=== PATIENT | female | born 1945 | race American Indian/Alaskan Native ===

== ENCOUNTER 2021-08-24 09:00 | Day surgery (SDC) | payer MEDICARE ==
[2021-08-24] MEDS ORDERED: LIDOCAINE (2%) 20 MG/1 ML VIAL 20 ML MDV INFILTRATI ONE (09:37)
[2021-08-24] MEDS ORDERED: LIDOCAINE (1%) 10 MG/1 ML VIAL 20 ML MDV ONE (09:44)
[2021-08-24 10:07] LABS: INR 0.88 (0.87-1.13)
[2021-08-24 10:08] LABS: Partial Thromboplastin Time 28.1 Sec. (24.2-36.6)
[2021-08-24] MEDS ORDERED: HYDROcodone/ACETAMINOPHEN 5-325 MG TAB PO NR (12:30)
--- NOTE | 2021-08-24 12:43 | Short Stay Summary ---
Short Stay Documentation Date of service: 08/24/21 - History Principal diagnosis: back pain with radiculopathy Past Surgical History: Other (lumbar fusion) - Allergies and Medications Current Medications: Allergies No Known Allergies Allergy (Unverified 08/24/21 09:23) Home Medications Medication Instructions Recorded Confirmed Last Taken Type Acetaminophen [Tylenol] 500 mg PO DAILY 08/24/21 08/24/21 08/23/21 History 1 tab Gabapentin [Neurontin] 800 mg PO TID 08/24/21 08/24/21 08/23/21 History 800 mg OXYCODONE hcl [Oxycodone] 15 mg PO TID PRN 08/24/21 08/24/21 08/23/21 History 15 mg hydroCHLOROthiazide [HCTZ] 12.5 mg PO DAILY 08/24/21 08/24/21 08/23/21 History 12.5mg predniSONE [Deltasone] 5 mg PO DAILY 08/24/21 08/24/21 08/23/21 History 5 mg tiZANidine [Zanaflex 4mg TAB] 4 mg PO BID 08/24/21 08/24/21 08/23/21 History 4 mg Active Medications Hydrocodone Bitart/Acetaminophen (Hydrocodone/Acetaminophen 5-325 Mg Tab) 1 each PO ONCE NR Stop: 08/24/21 13:00 - Physical exam General appearance: no acute distress Extremities: no ischemia, No edema - Brief post op/procedure progress note Date of procedure: 08/24/21 Pre-op diagnosis: back pain Post-op diagnosis: same Procedure: thoracic and lumbar myelogram Anesthesia: local Findings: diffusion spondylosis. previous lumbar fusion Surgeon: SOUMYA WAKTINS Estimated blood loss: none Pathology: none Condition: stable - Hospital course Hospital course: pt complained of mild back pain post procedure, similar to pain at beginning of procedure - Disposition Condition at discharge: Good Disposition: 01 HOME / SELF CARE / HOMELESS Short Stay Discharge Plan Follow up with: DARYL MARQUEZ MD [Primary Care Provider] - 7 Days
[2021-08-24 13:48] VITALS: BP 134/59
--- NOTE | 2021-08-24 14:33 | Fluoroscopy Report ---
FLUOROSCOPY MYELOGRAM 2 REGIONS HISTORY: Back pain, radiculopathy COMPARISON: None. DESCRIPTION OF PROCEDURE: Informed consent was obtained. Sterile technique was utilized. 1% lidocaine for skin anesthesia. Lumbar puncture was performed at the L2-3 level. Approximately 12 cc of Omnipaq ue 300 was injected into the thecal space. The contrast agent appeared free flowing throughout the th oracic and upper lumbar region. A large epidural defect is identified at L3-4 suggesting high-grade s tenosis. Please await the following CT myelogram for full characterization. The patient tolerated the procedure with minor discomfort. No complications. IMPRESSION: Successful thoracic and lumbar myelogram. High-grade central canal stenosis is suggested at L3-4. Fluoroscopic time: 4.6 minutes. Fluoroscopic images: 9 Signer Name: Matt De La Cruz Jr, MD Signed: 08/24/2021 2:29 PM Workstation Name: [id number]
--- NOTE | 2021-08-24 15:27 | Cat Scan Report ---
. CT LUMBAR SPINE: After myelogram 08/24/2021 INDICATION / CLINICAL INFORMATION: back pain. COMPARISON: None available. FINDINGS: Post myelographic CT images of the lumbar spine were obtained. Images are evaluated in the axial, cor onal, and sagittal planes. There is left convex scoliosis centered at the L3 level. Postoperative changes are present at the L4-5 level. There is severe stenosis present at L3-4, as detailed below. LEVEL BY LEVEL ANALYSIS: L5-S1: Mild diffuse disc bulging and moderate facet degenerative changes. Bilateral foraminal encroa chment is present. L4-5: Status post laminectomy and fusion. L3-4: Disc space narrowing and prominent diffuse disc bulging associated with severe stenosis of the central canal. Bilateral foraminal narrowing is present, right greater than left. L2-3: Disc space narrowing and moderate diffuse disc bulging. L1-2: Disc space narrowing and mild diffuse disc bulging. PARASPINAL STRUCTURES: Unremarkable. IMPRESSION: Postoperative and degenerative changes. Severe stenosis at L3-4. All CT scans at this location are performed using dose reduction to ALARA by means of automated expos ure control. Signer Name: Patric Diego MD Signed: 08/24/2021 3:23 PM Workstation Name: [id number]
--- NOTE | 2021-08-24 15:31 | Cat Scan Report ---
CT THORACIC SPINE: After myelogram 08/24/2021 INDICATION / CLINICAL INFORMATION: back pain. COMPARISON: None available. FINDINGS: Post myelographic CT images of the thoracic spine were obtained. Images are evaluated in the axial, c oronal, and sagittal planes. There is a mild right convex scoliosis. A spinal stimulator wire enters the dorsal aspect of the canal between spinous processes at T8-T9, an d extends upward in the dorsal aspect of the canal to the level of the T6-7 disc space. There is no evidence of spinal cord compression or intrinsic spinal cord abnormality. Degenerative disc space narrowing and diffuse disc bulging is present at all levels in the thoracic s pine. There is pronounced loss of disc height with endplate irregularity or degenerative basis at T9- T10 and T10-11 levels. PARASPINAL STRUCTURES: Unremarkable IMPRESSION: Degenerative changes as described above. Spinal stimulator device present. All CT scans at this location are performed using dose reduction to ALARA by means of automated expos ure control. Signer Name: Patric Diego MD Signed: 08/24/2021 3:26 PM Workstation Name: [id number]
== END 2021-08-24 14:05 | disposition home or self-care (01) ==
LOC: EDSTATUS 09:00 → CATHLABREC 09:00 → FLUORO 09:00 → CATHLABREC 14:05
PROVIDERS: ATTEND Psychiatry & Neurology Neurology
DX: M54.50 Low back pain, unspecified (principal); M54.16 Radiculopathy, lumbar region; G89.29 Other chronic pain; M48.061 Spinal stenosis, lumbar region without neurogenic claudication; I10 Essential (primary) hypertension; K21.9 Gastro-esophageal reflux disease without esophagitis; M79.7 Fibromyalgia; M19.90 Unspecified osteoarthritis, unspecified site; Z79.899 Other long term (current) drug therapy; Z98.890 Other specified postprocedural states; Z80.3 Family history of malignant neoplasm of breast; Z96.641 Presence of right artificial hip joint
CPT/HCPCS: 36415; 62305; 72128; 72131; 85049; 85610; 85730; J3490